=== PATIENT | male | born 1960 | race Caucasian/White ===

== ENCOUNTER → 2017-02-19 | Outpatient (CLI) | payer OTHER ==
[~2017-02-19] MED LIST: ENO30I SC; GEM600 PO; HYDR-2966 PO; HYDR12.556 PO; IBUP-56 PO; LISI-362 PO; PER PO; PROP20TA56 PO; PROP40TA45 PO; RIVA20TA PO; SIMV-49 PO; TADA20TA33 PO; WARF-18 PO; WARF7.5T27 PO; WARF7.5T32 PO
[2017-02-19 10:38] LABS: INR 3.06
== END ==
LOC: LAB 09:55
PROVIDERS: ATTEND Internal Medicine
DX: I82.409 Acute embolism and thrombosis of unspecified deep veins of unspecified lower extremity (principal)
CPT/HCPCS: 36415; 85610

== ENCOUNTER → 2017-03-19 | Outpatient (CLI) | payer OTHER ==
[2017-03-19 11:00] LABS: INR 1.93
== END ==
LOC: LAB 10:06
PROVIDERS: ATTEND Internal Medicine
DX: I82.409 Acute embolism and thrombosis of unspecified deep veins of unspecified lower extremity (principal)
CPT/HCPCS: 36415; 85610

== ENCOUNTER → 2017-05-04 | Outpatient (CLI) | payer OTHER ==
[~2017-05-04] MED LIST changes: -WARF-18 PO; +WARF5TAB23 PO; +WARF7.5T13 PO; -WARF7.5T32 PO
[2017-05-04 15:00] LABS: INR 3.42
== END ==
LOC: LAB 14:15
PROVIDERS: ATTEND Internal Medicine
DX: I82.409 Acute embolism and thrombosis of unspecified deep veins of unspecified lower extremity (principal)
CPT/HCPCS: 36415; 85610

== ENCOUNTER → 2017-05-21 | Outpatient (CLI) | payer OTHER ==
[~2017-05-21] MED LIST changes: +ATOR20TA65 PO
[2017-05-21 10:03] LABS: INR 2.51
== END ==
LOC: LAB 09:35
PROVIDERS: ATTEND Internal Medicine
DX: Z86.718 Personal history of other venous thrombosis and embolism (principal)
CPT/HCPCS: 36415; 85610

== ENCOUNTER → 2017-06-24 | Outpatient (CLI) | payer OTHER ==
[~2017-06-24] MED LIST changes: +ROSU5TAB8 PO
[2017-06-24 09:54] LABS: INR 2.28
== END ==
LOC: LAB 09:15
PROVIDERS: ATTEND Internal Medicine
DX: Z51.81 Encounter for therapeutic drug level monitoring (principal); Z79.01 Long term (current) use of anticoagulants; I82.409 Acute embolism and thrombosis of unspecified deep veins of unspecified lower extremity
CPT/HCPCS: 36415; 85610

== ENCOUNTER → 2017-07-26 | Outpatient (CLI) | payer OTHER ==
[2017-07-26 13:30] LABS: INR 2.48
== END ==
LOC: LAB 12:45
PROVIDERS: ATTEND Internal Medicine
DX: Z51.81 Encounter for therapeutic drug level monitoring (principal); Z79.01 Long term (current) use of anticoagulants; I82.409 Acute embolism and thrombosis of unspecified deep veins of unspecified lower extremity
CPT/HCPCS: 36415; 85610

== ENCOUNTER → 2017-08-27 | Outpatient (CLI) | payer OTHER ==
[2017-08-27 14:16] LABS: PLATELET COUNT, AUTOMATED 199 K/uL (150-450)
[2017-08-27 14:25] LABS: INR 1.17
[2017-08-27 14:39] LABS: LDL CHOLESTEROL 82 mg/dl
== END ==
LOC: LAB 14:04
PROVIDERS: ATTEND Internal Medicine
DX: Z00.00 Encounter for general adult medical examination without abnormal findings (principal); Z12.5 Encounter for screening for malignant neoplasm of prostate; Z51.81 Encounter for therapeutic drug level monitoring; Z79.01 Long term (current) use of anticoagulants; R73.9 Hyperglycemia, unspecified; I10 Essential (primary) hypertension; E78.5 Hyperlipidemia, unspecified
CPT/HCPCS: 36415; 82040; 82247; 82310; 82374; 82435; 82465; 82565; 82947; 83036; 83718; 84075; 84132; 84153; 84155; 84295; 84443; 84450; 84460; 84478; 84520; 85025; 85610

== ENCOUNTER → 2017-09-08 | Outpatient (CLI) | payer OTHER ==
[2017-09-08 16:49] LABS: INR 2.86
== END ==
LOC: LAB 16:11
PROVIDERS: ATTEND Internal Medicine
DX: I82.409 Acute embolism and thrombosis of unspecified deep veins of unspecified lower extremity (principal)
CPT/HCPCS: 36415; 85610

== ENCOUNTER 2017-10-02 11:21 | Emergency (ER) | payer OTHER ==
--- NOTE | 2017-10-02 11:31 | ER Report ---
History and Physical Time Seen By MD: 11:31 HPI/ROS CHIEF COMPLAINT: Left lower extremity swelling HISTORY OF PRESENT ILLNESS: 57-year-old male patient presents to the emergency room with complaint of left lower extremity swelling. Patient states that he has noticed this for the last couple of days. He states that on he was working outside and became very tired. He states that he had some heat exhaustion. He states he went home and when he got into bed his dog jumped up under his leg. States he noted that occurred at that time. He then stayed in bed all day yesterday and push fluids. He states that when he got up today he ran an errand. He states when he returned that he noticed that his leg was significantly swollen. He states that he does have a history of DVTs. He is currently on Coumadin and states he has not missed any doses with that. He did have his INR checked last approximately 08 September and it was 2.4 that time. Patient denies having any shortness of breath, chest pain, hemoptysis. REVIEW OF SYSTEMS: Respiratory: No cough, no dyspnea. Cardiovascular: No chest pain, no palpitations. Gastrointestinal: No vomiting, no abdominal pain. Musculoskeletal: No back pain. Allergies: Coded Allergies: No Known Drug Allergies (Verified , 10/02/17) Home Meds Active Scripts Enoxaparin Sodium (LOVENOX) 100 Mg/1 Ml Disp.syrin, 100 MG SQ BID, #14 SYR Prov:ANTONY RENE 10/02/17 Rosuvastatin Calcium (CRESTOR) 5 Mg Tablet, 5 MG PO QDAY, #90 TAB 3 Refills Prov:CRISTIAN ZAMORA MD 09/30/17 Warfarin Sodium (WARFARIN SODIUM) 7.5 Mg Tablet, 7.5 MG PO QDAY, #150 TAB 3 Refills 11.2 mg Wed, , , Wednesday 7.5 mg rest of the week Prov:CRISTIAN ZAMORA MD 05/21/17 Lisinopril (LISINOPRIL) 10 Mg Tablet, 10 MG PO BID, #180 TAB 3 Refills Prov:CRISTIAN ZAMORA MD 05/21/17 Tadalafil (CIALIS) 20 Mg Tablet, 20 MG PO QDAY Y for E.D., #9 TAB 3 Refills Prov:CRISTIAN ZAMORA MD 01/23/16 Reported Medications Ibuprofen (IBUPROFEN) 400 Mg Tablet, 1 TAB PO PRN, TAB 10/02/17 Ubidecarenone (CO Q-10) 10 Mg Capsule, 10 MG PO, CAPSULE 10/02/17 Past Medical/Surgical History Patient has a past medical history of DVT, hypertension, occasional reflux, arthritis, fractures, hypercoagulable. Patient has a surgical history of a left total hip replacement, left shoulder surgery 2, jaw surgery. Patient has a family medical history of cancer. Reviewed Nurses Notes: Yes Hx Smoking: Yes (1/2 PPD X 40 YRS ) Smoking Status: Current: Every Day Smoker Constitutional Vital Sign - Last 24 Hours 10/02/17 10/02/17 10/02/17 10/02/17 11:21 11:25 11:26 11:45 Temp 98.3 Pulse ??? 77 Resp 20 B/P (MAP) 136/79 (98) 136/79 123/66 (85) Pulse Ox 94 O2 Delivery Room Air 10/02/17 10/02/17 10/02/17 10/02/17 11:51 12:00 12:21 12:30 Pulse 72 71 B/P (MAP) 105/61 (76) 101/61 (74) Pulse Ox 89 93 10/02/17 10/02/17 10/02/17 10/02/17 12:51 13:00 13:21 13:26 Pulse 69 70 B/P (MAP) 125/83 (97) Pulse Ox 91 92 93 10/02/17 10/02/17 10/02/17 10/02/17 13:30 13:56 14:00 14:26 Pulse 67 73 B/P (MAP) 120/78 (92) 118/79 (92) Pulse Ox 92 92 10/02/17 14:30 B/P (MAP) 112/66 (81) Physical Exam General Appearance: The patient is alert, has no immediate need for airway protection and no current signs of toxicity. Respiratory: Chest is non tender, lungs are clear to auscultation. Cardiac: regular rate and rhythm Gastrointestinal: Abdomen is soft and non tender, no masses, bowel sounds normal. Musculoskeletal: Neck: Neck is supple and non tender. Extremities have full range of motion and are non tender. Patient does have swelling with 2+ pitting edema in the left lower extremity, it is erythematous, touch. Skin: No rashes or lesions. DIFFERENTIAL DIAGNOSIS: After history and physical exam differential diagnosis was considered for DVT, cellulitis, medication failure. Medical Decision Making Data Points Result Diagram: 10/02/17 1145 10/02/17 1145 Laboratory Hematology Test 10/02/17 11:45 Red Blood Count 4.74 M/uL (4.00-5.60) Mean Corpuscular Volume 98.1 fL (80.0-96.0) Mean Corpuscular Hemoglobin 35.5 pg (26.0-33.0) Mean Corpuscular Hemoglobin Concent 36.2 g/dL (32.0-36.0) Red Cell Distribution Width 13.5 % (11.5-14.5) Mean Platelet Volume 7.1 fL (7.2-11.1) Neutrophils (%) (Auto) 76.8 % (39.4-72.5) Lymphocytes (%) (Auto) 14.7 % (17.6-49.6) Monocytes (%) (Auto) 7.9 % (4.1-12.4) Eosinophils (%) (Auto) 0.2 % (0.4-6.7) Basophils (%) (Auto) 0.4 % (0.3-1.4) Nucleated RBC Relative Count (auto) 0.0 /100WBC Neutrophils # (Auto) 6.9 K/uL (2.0-7.4) Lymphocytes # (Auto) 1.3 K/uL (1.3-3.6) Monocytes # (Auto) 0.7 K/uL (0.3-1.0) Eosinophils # (Auto) 0.0 K/uL (0.0-0.5) Basophils # (Auto) 0.0 K/uL (0.0-0.1) Nucleated RBC Absolute Count (auto) 0.00 K/uL Prothrombin Time 32.3 seconds (12.0-14.4) Prothromb Time International Ratio 3.06 Activated Partial Thromboplast Time 54 seconds (23-35) Sodium Level 137 mmol/L (137-145) Potassium Level 4.0 mmol/L (3.5-5.0) Chloride Level 105 mmol/L (98-107) Carbon Dioxide Level 21 mmol/L (22-30) Blood Urea Nitrogen 17 mg/dl (9-21) Creatinine 1.10 mg/dl (0.66-1.25) Glomerular Filtration Rate Calc > 60.0 Random Glucose 116 mg/dl (75-110) Calcium Level 9.0 mg/dl (8.4-10.2) Total Bilirubin 0.7 mg/dl (0.2-1.3) Aspartate Amino Transf (AST/SGOT) 23 U/L (0-35) Alanine Aminotransferase (ALT/SGPT) 31 U/L (0-56) Alkaline Phosphatase 66 U/L (0-126) Total Protein 7.6 g/dl (6.3-8.2) Albumin 4.3 g/dl (3.5-5.0) Chemistry Test 10/02/17 11:45 White Blood Count 9.0 k/uL (4.5-11.0) Red Blood Count 4.74 M/uL (4.00-5.60) Hemoglobin 16.8 g/dL (14.0-18.0) Hematocrit 46.5 % (42.0-52.0) Mean Corpuscular Volume 98.1 fL (80.0-96.0) Mean Corpuscular Hemoglobin 35.5 pg (26.0-33.0) Mean Corpuscular Hemoglobin Concent 36.2 g/dL (32.0-36.0) Red Cell Distribution Width 13.5 % (11.5-14.5) Platelet Count 167 K/uL (150-450) Mean Platelet Volume 7.1 fL (7.2-11.1) Neutrophils (%) (Auto) 76.8 % (39.4-72.5) Lymphocytes (%) (Auto) 14.7 % (17.6-49.6) Monocytes (%) (Auto) 7.9 % (4.1-12.4) Eosinophils (%) (Auto) 0.2 % (0.4-6.7) Basophils (%) (Auto) 0.4 % (0.3-1.4) Nucleated RBC Relative Count (auto) 0.0 /100WBC Neutrophils # (Auto) 6.9 K/uL (2.0-7.4) Lymphocytes # (Auto) 1.3 K/uL (1.3-3.6) Monocytes # (Auto) 0.7 K/uL (0.3-1.0) Eosinophils # (Auto) 0.0 K/uL (0.0-0.5) Basophils # (Auto) 0.0 K/uL (0.0-0.1) Nucleated RBC Absolute Count (auto) 0.00 K/uL Prothrombin Time 32.3 seconds (12.0-14.4) Prothromb Time International Ratio 3.06 Activated Partial Thromboplast Time 54 seconds (23-35) Glomerular Filtration Rate Calc > 60.0 Calcium Level 9.0 mg/dl (8.4-10.2) Total Bilirubin 0.7 mg/dl (0.2-1.3) Aspartate Amino Transf (AST/SGOT) 23 U/L (0-35) Alanine Aminotransferase (ALT/SGPT) 31 U/L (0-56) Alkaline Phosphatase 66 U/L (0-126) Total Protein 7.6 g/dl (6.3-8.2) Albumin 4.3 g/dl (3.5-5.0) Coagulation Test 10/02/17 11:45 Prothrombin Time 32.3 seconds Prothromb Time International Ratio 3.06 Activated Partial Thromboplast Time 54 seconds EKG/Imaging Imaging EXAMINATION: Doppler ultrasound deep veins unilateral lower extremity HISTORY: Swelling and pain, no injury to the leg. History of DVT. COMPARISON: Left lower extremity ultrasound from 06/14/2009. FINDINGS: Grayscale compression, duplex and color Doppler interrogation of the left lower extremity deep veins from common femoral vein to proximal calf was performed. The greater saphenous vein in the ipsilateral proximal thigh was evaluated using similar technique. Left lower extremity: Common femoral vein: Negative. Femoral vein: Negative. Deep femoral vein: Negative. Popliteal vein: Negative. Visualized deep calf veins: Calf veins are difficult to visualize and can't be compressed, but are patent on color Doppler images. Greater saphenous vein in the proximal thigh: There is hypoechoic noncompressible clot to the junction with the common femoral vein. Popliteal fossa: Negative. Waveforms: Normal respiratory phasicity. A few shotty left groin lymph nodes are noted. IMPRESSION: Clot in the proximal left greater saphenous vein extends to the junction with the common femoral vein. Technically this clot is treated as a DVT. These findings were discussed with ANTONY RENE at 10/02/2017 1:30 PM. Report Dictated By: Cecile Nettles MD at 10/02/2017 1:26 PM Report E-Signed By: Cecile Nettles MD at 10/02/2017 1:31 PM ED Course/Re-evaluation ED Course Patient was admitted to an exam room, history and physical were obtained. Differential diagnoses were considered. On examination patient did have obvious swelling to the left lower leg. A INR was checked, patient had an INR of 3. An ultrasound of the leg was done which showed a DVT in the left saphenous vein that edges right to the greater femoral vein. The radiologist recommended treating this as a DVT. With the patient are to being on Coumadin and therapeutic him that I discussed the case with Dr. Ruvalcaba, his recommendation was to discuss the case with hematology and interventional radiology. I did call down and spoke with the hospitalist at [facility] ([place], [place]), Dr. Garcia, who recommended changing the anticoagulant and having a follow-up with his primary care and hematology. I discussed this with the patient and his . They verbalized agreement with the plan. They were okay with going with Lovenox twice a day. We will do that for the next week and follow-up with his primary care provider. He is to limit activity by pain. He is to return to emergency room with any shortness of breath or chest pain. Patient and his verbalized understanding and agreement with plan. Decision to Disposition Date: Oct 02, 2017 Decision to Disposition Time: 14:59 Depart Departure Latest Vital Signs Vital Signs Date Time Temp Pulse Resp B/P (MAP) Pulse Ox O2 Delivery O2 Flow Rate FiO2 10/02/17 14:30 112/66 (81) 10/02/17 14:26 73 92 10/02/17 11:26 98.3 20 Room Air Impression: Primary Impression: Deep vein thrombosis of lower extremity Condition: Improved Disposition: HOME OR SELF-CARE Referrals: CRISTIAN ZAMORA MD (PCP) New Scripts Enoxaparin Sodium (LOVENOX) 100 Mg/1 Ml Disp.syrin 100 MG SQ BID, #14 SYR Prov: ANTONY RENEP 10/02/17 Patient Instructions: Deep Venous Thrombosis (ED) Additional Instructions: Increase fluid intake. Follow up with your primary care provider in the next week. Limit activity by pain. I would encourage you to also follow up with Hematology at the hospital. Return to the ER if condition worsens; shortness of breath or chest pain. Get plenty of rest. Problem Qualifiers Primary Impression: Deep vein thrombosis of lower extremity Affected thrombotic vein of extremity: unspecified vein of extremity Chronicity: acute Laterality: left Qualified Codes: I82.402 - Acute embolism and thrombosis of unspecified deep veins of left lower extremity ANTONY RENE Oct 02, 2017 11:31
[2017-10-02] MEDS ORDERED: UBID10CA11 PO (11:33)
[2017-10-02] MEDS ORDERED: IBUP400T13 PO (11:33)
[2017-10-02 11:58] LABS: PLATELET COUNT, AUTOMATED 167 K/uL (150-450)
[2017-10-02 12:04] LABS: INR 3.06
--- NOTE | 2017-10-02 13:34 | RADIOLOGY IMAGING REPORT ---
FACILITY: [facility] PATIENT NAME: Marcus Burger : 1960 MR: [id number] V: [id number] EXAM DATE: ORDERING PHYSICIAN: ANTONY RENE TECHNOLOGIST: Location: [facility] Patient: Marcus Burger : 1960 Visit/Account:[id number] Date of Sevice: 10/02/2017 EXAMINATION: Doppler ultrasound deep veins unilateral lower extremity HISTORY: Swelling and pain, no injury to the leg. History of DVT. COMPARISON: Left lower extremity ultrasound from 06/14/2009. FINDINGS: Grayscale compression, duplex and color Doppler interrogation of the left lower extremity deep veins from common femoral vein to proximal calf was performed. The greater saphenous vein in the ipsilatera l proximal thigh was evaluated using similar technique. Left lower extremity: Common femoral vein: Negative. Femoral vein: Negative. Deep femoral vein: Negative. Popliteal vein: Negative. Visualized deep calf veins: Calf veins are difficult to visualize and can't be compressed, but are pa tent on color Doppler images. Greater saphenous vein in the proximal thigh: There is hypoechoic noncompressible clot to the junctio n with the common femoral vein. Popliteal fossa: Negative. Waveforms: Normal respiratory phasicity. A few shotty left groin lymph nodes are noted. IMPRESSION: Clot in the proximal left greater saphenous vein extends to the junction with the common femoral vein . Technically this clot is treated as a DVT. These findings were discussed with ANTONY RENE at 10/02/2017 1:30 PM. Report Dictated By: Cecile Nettles MD at 10/02/2017 1:26 PM Report E-Signed By: Cecile Nettles MD at 10/02/2017 1:31 PM WSN:[id number]
[2017-10-02 14:30] VITALS: BP 112/66
[2017-10-02] MEDS ORDERED: ENOX100D5 SQ (14:57)
[2017-10-04] MEDS ORDERED: ENO150PT SQ (10:15)
[2017-10-04] MEDS ORDERED: ROS10 PO (10:18)
== END 2017-10-02 15:10 | disposition home or self-care (01) ==
LOC: ER 11:25
DX: I82.402 Acute embolism and thrombosis of unspecified deep veins of left lower extremity (principal); I10 Essential (primary) hypertension; K21.9 Gastro-esophageal reflux disease without esophagitis; M19.90 Unspecified osteoarthritis, unspecified site; F17.200 Nicotine dependence, unspecified, uncomplicated; Z86.718 Personal history of other venous thrombosis and embolism; Z79.01 Long term (current) use of anticoagulants; Z79.899 Other long term (current) drug therapy
CPT/HCPCS: 82040; 82247; 82310; 82374; 82435; 82565; 82947; 84075; 84132; 84155; 84295; 84450; 84460; 84520; 85025; 85610; 85730; 99284

== ENCOUNTER 2017-10-28 08:00 | Outpatient (RCR) | payer OTHER ==
[2017-10-21 09:40] VITALS: BP 129/89
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
[2017-10-22 08:13] VITALS: BP 145/77
[~2017-10-28 08:00] MED LIST changes: +ENO150PT SQ; +ENOX100D5 SQ; +IBUP400T13 PO; +ROS10 PO; +UBID10CA11 PO
[2017-10-28 08:10] VITALS: BP 129/84
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
== END 2017-11-17 09:14 | disposition home or self-care (01) ==
LOC: ONC 08:00
PROVIDERS: ATTEND Internal Medicine Hematology
DX: I80.3 Phlebitis and thrombophlebitis of lower extremities, unspecified (principal); Z86.718 Personal history of other venous thrombosis and embolism; Z79.01 Long term (current) use of anticoagulants; F17.210 Nicotine dependence, cigarettes, uncomplicated; Z79.899 Other long term (current) drug therapy
CPT/HCPCS: 36415; 83090; 99202; 99212

== ENCOUNTER 2018-04-22 13:35 | Outpatient (RCR) | payer OTHER ==
--- NOTE | 2018-03-10 09:54 | NUR ---
Called in folic acid 1 mg to [facility]; dispense #[phone] refill X 3.
[~2018-04-22 13:35] MED LIST changes: +APIX5TAB PO; -ROS10 PO; +ROSU10TA PO
== END 2018-04-25 12:19 | disposition home or self-care (01) ==
LOC: ONC 13:35
PROVIDERS: ATTEND Internal Medicine Hematology
DX: Z86.718 Personal history of other venous thrombosis and embolism (principal)

== ENCOUNTER 2018-04-27 15:26 | Outpatient (RCR) | payer OTHER | END 2018-04-28 16:50 | disposition home or self-care (01) | LOC: ONC 15:26 | PROVIDERS: ATTEND Internal Medicine Hematology | DX: Z02.9 Encounter for administrative examinations, unspecified (principal) ==

== ENCOUNTER 2018-05-13 09:23 | Outpatient (RCR) | payer OTHER ==
[2018-05-10 08:18] VITALS: BP 128/78
[2018-05-13 09:31] VITALS: BP 134/83
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
== END 2018-07-01 09:00 | disposition home or self-care (01) ==
LOC: ONC 09:23
PROVIDERS: ATTEND Internal Medicine Hematology
DX: Z86.718 Personal history of other venous thrombosis and embolism (principal); Z86.72 Personal history of thrombophlebitis; Z79.01 Long term (current) use of anticoagulants; E72.11 Homocystinuria
CPT/HCPCS: 36415; 83090; 99212

== ENCOUNTER 2018-09-07 08:00 | Outpatient (RCR) | payer OTHER | END 2018-10-15 | disposition home or self-care (01) | LOC: ONC 08:00 | PROVIDERS: ATTEND Internal Medicine Hematology | DX: Z02.9 Encounter for administrative examinations, unspecified (principal) | CPT/HCPCS: 90471 ==